=== PATIENT | female | born 1975 | race Hispanic/Latino ===

== ENCOUNTER 2019-10-28 05:51 | Day surgery (SDC) | payer OTHER ==
[2019-10-23 12:32] VITALS: BMI 34.0
[2019-10-23 14:06] LABS: Hemoglobin 11.3 g/dL (12.0-16.0); Mean Corpuscular HGB CONC 32.5 g/dL (32.0-36.0); Mean Corpuscular Hemoglobin 25.6 pg (27.0-31.0); Mean Platelet Volume 8.6 fL (7.4-10.4); Platelet Count 384 thou/uL (130-400); RBC Distribution Width 18.9 % (11.5-14.5); Red Blood Cell (RBC) Count 4.42 mill/uL (4.20-5.40); White Blood Cell (WBC) Count 7.6 thou/uL (4.8-10.8)
[2019-10-28] MEDS ORDERED: CeleCOXIB 100 MG CAP ONE (06:17)
[2019-10-28] MEDS ORDERED: Gabapentin 300 MG CAP ONE (06:17)
[2019-10-28] MEDS ORDERED: Midazolam HCl 2 mg/2 ml Vial ONE (06:29)
[2019-10-28] MEDS ORDERED: Scopolamine 1.5 mg/72 hour Patch ONE (06:29)
[2019-10-28] MEDS ORDERED: Fentanyl 250 MCG/5 ML VIAL ONE (06:29)
[2019-10-28] MEDS ORDERED: Famotidine/PF 20 mg/2ml Vial ONE (06:48)
[2019-10-28] MEDS ORDERED: Lidocaine 1% w/Epinephrine 1:100K 20 ML VIAL ONE (06:54)
[2019-10-28] MEDS ORDERED: Bupivacaine 0.25% HCL 30 ML VIAL ONE (06:54)
[2019-10-28] MEDS ORDERED: Bupivacaine PF 0.5% 30 ML VIAL ONE (06:57)
[2019-10-28] MEDS ORDERED: Phenylephrine HCL 10 MG/ML VIAL ONE (06:59)
[2019-10-28] MEDS ORDERED: SUGAMMADEX SODIUM 500 MG/5 ML VIAL ONE (06:59)
[2019-10-28] MEDS ORDERED: Meperidine HCl/PF 25 MG/ML VIAL SLOW IVP PRN (09:10)
[2019-10-28] MEDS ORDERED: Promethazine HCl 25 MG/ML VIAL SLOW IVP PRN (09:10)
[2019-10-28] MEDS ORDERED: HYDROmorphone 2 MG/ML VIAL SLOW IVP PRN (09:10)
[2019-10-28] MEDS ORDERED: Ondansetron HCl/PF 4 MG/2 ML Vial IVP PRN (09:10)
[2019-10-28] MEDS ORDERED: EPHEDRINE 25 MG/5 ML SYRINGE ONE (09:44)
[2019-10-28] MEDS ORDERED: Rocuronium Bromide 10 MG/ML (10ML VIAL) ONE (09:44)
[2019-10-28] MEDS ORDERED: Lidocaine 1% PF 5 ML VIAL ONE (09:44)
[2019-10-28] MEDS ORDERED: Glycopyrrolate 0.2 MG/ML 5 ML SYRINGE ONE (09:44)
[2019-10-28] MEDS ORDERED: Ondansetron PF 4 MG/2 ML Vial ONE (09:44)
[2019-10-28] MEDS ORDERED: PROPOFOL 200 MG/20 ML VIAL ONE (09:44)
[2019-10-28] MEDS ORDERED: diphenhydrAMINE 25 MG CAP PO PRN (10:18)
[2019-10-28] MEDS ORDERED: Promethazine HCl 25 MG/ML VIAL IM PRN (10:18)
[2019-10-28] MEDS ORDERED: Bisacodyl 10 MG SUPP PR PRN (10:18)
[2019-10-28] MEDS ORDERED: Ondansetron PF 4 MG/2 ML Vial IVP PRN (10:18)
[2019-10-28] MEDS ORDERED: Morphine 4 MG/ML VIAL SLOW IVP PRN (10:18)
[2019-10-28] MEDS ORDERED: HYDROcodone/Acetaminophen 5/325 mg Tablet PO PRN ×2 (10:18)
[2019-10-28] MEDS ORDERED: Zolpidem Tartrate 5 MG TAB PO PRN (10:18)
[2019-10-28] MEDS ORDERED: Simethicone Chewable 80 MG TAB PO PRN (10:18)
[2019-10-28] MEDS ORDERED: Fentanyl 100 MCG/2 ML VIAL ONE ×2 (10:44→11:11)
[2019-10-28] MEDS: Sodium Chloride 0.9% 1,000 ML IV SCH ×2 (11:53→18:10)
[2019-10-28] MEDS: Ketorolac Tromethamine 30 MG/ML VIAL IVP SCH ×2 (12:23→18:08)
--- NOTE | 2019-10-28 15:48 | OP ---
DATE OF PROCEDURE: 10/28/2019 PREOPERATIVE DIAGNOSES: 1. Large fibroid uterus. 2. Central obesity. POSTOPERATIVE DIAGNOSES: Large fibroid uterus and intra-abdominal adhesive disease. PROCEDURES PERFORMED: Robotic-assisted total laparoscopic hysterectomy with right salpingectomy and lysis of adhesions and extracorporeal morcellation of fibroid uterus. VICE PRESIDENT PAYMENT: Lakeshia Alcala PA-C COMPLICATIONS: None. ESTIMATED BLOOD LOSS: Less than 100 mL. INTRAOPERATIVE FINDINGS: 1. Central obesity. 2. Large normal-appearing vaginal mucosa and cervix. 3. Uterus sounds to 12 cm. 4. Large fibroid uterus approximately 16-week size. 5. Surgical sites, hemostatic. DESCRIPTION OF PROCEDURE: The patient was taken back to the OR with IV fluids running. When she was in the OR, she was placed in supine position until anesthesia was obtained. Once the patient was asleep, she was placed in low dorsal lithotomy position with her arms tucked at her side, and the abdomen and vagina were prepped and draped in normal fashion for laparoscopic hysterectomy. The surgeons were gowned and gloved. The bladder was drained approximately 125 mL of urine. An operative speculum was placed into the vagina, and the anterior lip of the cervix was grasped with single-tooth tenaculum. The uterus was sounded to approximately 12 cm. A Exinda manipulator was assembled with a 4 cm cup and a 12 cm tip, and placed into the uterus and vagina in routine fashion. After the manipulator was placed, the surgeon's gloves were changed and attention was turned to the laparoscopic portion of the procedure. Beginning approximately 2 cm above the umbilicus, a 12 mm skin incision was made after local anesthesia was placed underneath the skin. Veress needle was placed through this incision, and the abdomen was insufflated without difficulty. Next, a 12 mm trocar was placed through the distended abdomen and the laparoscope was placed through the trocar with the above findings noted. The midline omental adhesions were noted just below the umbilicus in the midline of the visual field. The right and left lower quadrants could be easily seen for port placement. After local anesthesia was placed underneath the skin, the right lower quadrant 8 mm port was placed. In similar fashion, the right upper quadrant 11 mm and left lower quadrant 8 mm ports were placed also with under direct visualization without difficulty. A pair of monopolar scissors was introduced into the abdomen under direct visualization and were used to dissect the omentum off the anterior abdominal wall. The clip ramp boss was used to cross the vessel and noted near the anterior abdominal wall for additional hemostasis. After the omentum was completely resected off the abdominal wall, the monopolar scissors were removed and the robot was docked to the patient's bedside. With the patient in Trendelenburg position, the robotic arms were assembled to the ports and the monopolar and bipolar instruments were directed through the trocars toward the uterus under visualization. At the start of the case, the uterus was manipulated and adhesions over the uterine serosa were noted on the patient's left side. The uterus was elevated away from the left pelvic sidewall, and the ureter was identified. There was no left tube or ovary noted. The filmy adhesions were taken down and gently dissected away from the uterus further allowing the left ureter to fall away from the planned areas of dissection. The round ligament was identified on the patient's left side. It was cauterized and transected. The anterior and posterior leafs were dissected down towards the level of the left uterine artery. Anteriorly, the bladder flap was created just anteriorly beyond the left uterine artery. Attention was then turned to the contralateral side. The right fallopian tube was grasped and elevated. It was cauterized, transected, and sent for pathologic review. The ureter on the patient's right side was identified over the pelvic brim and followed down inferiorly was noted to be away from the uterus in areas of planned dissection. The utero-ovarian ligament on the patient's right side was cauterized and transected. The round ligament on the patient's right side was identified, cauterized, and transected. The right ovary then gently fell away to the right pelvic sidewall. The round ligament was further dissected into anterior and posterior leaf and dissected down towards the level of the right uterine artery. The bladder was back filled, and the bladder flap was created with the bladder easily visualized away from the planned colpotomy site. The cervical vesical fascia was then dissected in layers, further dissecting the bladder away from the planned colpotomy site. The bladder was then drained. The uterine artery and veins on the patient's right side were skeletonized, cauterized, and transected. In similar fashion, attention was turned back to the patient's left side, where the left uterine arteries were further skeletonized, cauterized, and transected. The colpotomy was then completed circumferentially using monopolar scissors. After the uterine and cervix specimen was completely dissected from the vagina, the manipulator was removed and the uterus was allowed to fall away into the pelvis. Of note, prior to starting the robotic portion of the case, the supraumbilical port was extended to approximately 3 cm. A GelPOINT Mini retractor was placed through the skin incision, and a GelPOINT cap was placed over it through which the supraumbilical port was placed. In addition at this time, an EndoCatch bag was placed into the abdominal cavity for use later after the colotomy was completed. After the uterine specimen was moved away from the vaginal cuff, vaginal cuff was copiously irrigated and dried. Any small areas of bleeding were controlled with bipolar and monopolar cautery. The vaginal cuff was closed with Stratafix suture in a running fashion and in 2 layers. After the vaginal cuff was closed, the vaginal cuff and surgical pedicles were copiously irrigated and suctioned dry. No areas of bleeding were noted. The specimen bag was then placed into the pelvis and opened up. The uterus specimen was placed into the bag. The bag was looped closed, and the string was brought through the GelPOINT retractor. At this point, the robotic arms were released from the trocars. The patient was put in a neutral position, and the gas was released from the abdomen. The uterine specimen was easily identified after the GelPOINT retractor was removed. The bag was brought up through the GelPOINT, and the retractor was replaced inside the bag. The approximate next 10 minutes were used to complete an extracorporeal morcellation that was contained within the bag of the large uterus specimen and fibroids. Numerous fibroids were encountered during the morcellation portion of the procedure. After the specimen was completely removed, the bag and GelPOINT were removed. The GelPOINT retractor was replaced into the abdomen. The abdomen was insufflated again. The surgical pedicles and vaginal cuff were irrigated one last time as well as the omentum. No areas of bleeding were noted. The pressure was dropped to 4 mmHg with no evidence of bleeding noted. Tisseel was placed over the vaginal cuff. All instruments were removed, and the gas was released from the abdomen. The supraumbilical fascial port site was closed with Vicryl suture. All 4 skin incisions were closed with Monocryl suture and dressed with Dermabond dressing. The vaginal mucosa and vaginal cuff were inspected at the end of the case with no areas of bleeding noted. The patient was then cleaned, dried, taken out of lithotomy position, extubated, and transferred to recovery room in good condition. Job ID: [id number]
[2019-10-29 05:50] LABS: Hemoglobin 10.6 g/dL (12.0-16.0); Mean Corpuscular HGB CONC 30.7 g/dL (32.0-36.0); Mean Corpuscular Hemoglobin 24.3 pg (27.0-31.0); Mean Corpuscular Volume 78.9 fL (78.0-98.0); Mean Platelet Volume 8.2 fL (7.4-10.4); Platelet Count 371 thou/uL (130-400); RBC Distribution Width 18.3 % (11.5-14.5); Red Blood Cell (RBC) Count 4.37 mill/uL (4.20-5.40); White Blood Cell (WBC) Count 8.3 thou/uL (4.8-10.8)
[2019-10-29] MEDS ORDERED: Ibuprofen 800 MG TAB PO SCH (06:00)
[2019-10-29] MEDS ORDERED: Ferrous Sulfate 325 MG TAB PO SCH (08:00)
--- NOTE | 2019-10-29 08:02 | PDOC.EVN ---
Event Note - Event Note Event Note: Discharge NOTE POD1 RATLH, CARA and EXCITE Pt is doing well, voiding, bisi reg diet and pain controlled w po meds. VS WNL NAD A and O nonlabored breathing Incisions CDI x 4 Erna dry A/P: POD1 RATLH EXCITE and CARA. Post op goals met and pt request DC.
[2019-10-29 08:19] VITALS: BP 125/73; TEMP 98.6
== END 2019-10-29 09:05 | disposition home or self-care (01) ==
LOC: SDC 05:51 → 3SE 10:17 → SDC 10-29 09:05
PROVIDERS: ATTEND Obstetrics & Gynecology
PROC: 0UT54ZZ Resection of Right Fallopian Tube, Percutaneous Endoscopic Approach (ICD-10-PCS; principal; 2019-10-29)
PROC: 0UT94ZZ Resection of Uterus, Percutaneous Endoscopic Approach (ICD-10-PCS; principal; 2019-10-29)
DX: D25.2 Subserosal leiomyoma of uterus (principal); N72 Inflammatory disease of cervix uteri; D64.9 Anemia, unspecified; E66.8 Other obesity; Z68.34 Body mass index [BMI] 34.0-34.9, adult
CPT/HCPCS: 36415; 85027; 86850; 86900; 86901; 88307; J0690; J1885; J2001; J2250; J2370; J2405; J2704; J3010; S0020; S0028

== ENCOUNTER 2023-07-24 13:39 | Outpatient (CLI) | payer OTHER ==
[~2023-07-24 13:39] MED LIST: Iopamidol 370 76% 100 ML VIAL ONE
== END 2023-07-24 13:40 | disposition home or self-care (01) ==
LOC: BICCT 13:39
PROVIDERS: ATTEND Nurse Practitioner Women's Health
DX: R19.00 Intra-abdominal and pelvic swelling, mass and lump, unspecified site (principal); K76.0 Fatty (change of) liver, not elsewhere classified; N20.0 Calculus of kidney; K43.9 Ventral hernia without obstruction or gangrene; N63.10 Unspecified lump in the right breast, unspecified quadrant
CPT/HCPCS: 74177; 82565